=== PATIENT | female | born 1950 | race Caucasian/White ===

== ENCOUNTER 2017-02-28 07:40 | Inpatient (IN) | payer MEDICARE, OTHER ==
--- NOTE | ~2017-02-28 | CN ---
Consultation Report [facility] [address] [place]. [address] NAME: DURGA SEYMOUR : 48 STATUS : ADM IN PAT#: [id number] AGE: 67 ADM/REG DATE : 02/28/17 MR#: [id number] REPORT SERV DATE: 02/28/17 DICTATED BY: KARIN STOKES DATE: 02/28/17 REPORT STATUS : Draft TRANSCRIBED BY: MODL DATE: 02/28/17 PULMONARY AND CRITICAL CARE MEDICINE CONSULTATION. DATE OF CONSULTATION: 02/28/2017 CHIEF PROGRAM OFFICER: Dr. Shah from the emergency department. HISTORY OF PRESENT ILLNESS: I was asked to evaluate Durga Seymour for potential ICU admission by Dr. Shah in the emergency department. Mrs. Seymour is a 67-year-old lady, who has previous debilitating CVA, who is bed and wheelchair-bound at her baseline. Her provides all of her care at home and uses a lift to get her in and out of the bed. He reports that she ate approximately five sandwiches for dinner last night and at some point overnight began vomiting and became short of breath. EMS was contacted and she was brought to our facility for evaluation. She was seen by the treatment team in the emergency department and started on BiPAP. She had mild lactic acidosis and no evidence of hypercapnia according to ER MD. She does have leukocytosis and mild metabolic acidosis. On evaluating Ms. Seymour, she is sluggishly responsive and has asymmetric pupils, left greater than right. She has coarse breath sounds of the right lower lobe on BiPAP and has hemiparesis. In discussing goals of care with Mr. Seymour, he made it very clear to me that she had no interest in advanced forms of life support, never wanted to be on the ventilator, particularly in light of her very debilitated state. We discussed options for directions of her care including admission to the intensive care unit versus moving to a private room on the floor for supportive care, and more conservative management. He elected for transfer to a private room as a full DNR for antibiotics, oxygen support, and liberal visiting hours. I discuss the case with Dr. Shah from the emergency department. Recommendations would include emergent brain imaging in light of her obtundation, vomiting, and asymmetric pupils, and stat brain CT has been ordered by me this morning. Of note, she did receive DuoNeb which includes ipratropium which may account for her asymmetric pupils, but I am prudent to exclude intercerebral pathology, as well would recommend holding on noninvasive positive pressure ventilation (BiPAP), as she was vomiting and aspirating, and has no evidence of hypercapnia, Vapotherm will be a good choice if she is unable tolerate conventional nasal cannula. Her family is not interested in intubation or mechanical ventilation. I did complete a DNR form to that effect. Would recommend broad-spectrum antibiotics, ongoing fluid resuscitation, trending lactic acid level, following additional fluid boluses, and admission to the Hospital Medicine Service for supportive care. Please re-consult if needed Critical Care Medicine. We will sign off. [place]/ANNE MARIE Karin Stokes MD Consultation Report [address] [address] NAME: DURGA SEYMOUR : 48 STATUS : ADM IN [facility]#: [id number] AGE: 67 ADM/REG DATE : 02/28/17 MR#: [id number] REPORT SERV DATE: 02/28/17 DICTATED BY: KARIN STOKES DATE: 02/28/17 REPORT STATUS : Draft TRANSCRIBED BY: ANNE MARIE DATE: 02/28/17 / [id number] CC: Geovanni Vides M.D.
--- NOTE | ~2017-02-28 | HP ---
History And Physical [id number] [place]. 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 ED evaluation does show a large hemorrhagic CVA. The patient on chronic Coumadin. Her INR is 2.5. Family is more interested in palliative care based on the severity of her CT scan and not interested in transfer to [place]. The patient has been made DNR/DNI, will now be admitted to the Hospitalist Service for ongoing comfort care. 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 SOCIAL HISTORY: Lives with her . Very good family support. As mentioned above, she is currently DNR/DNI. Nonsmoker and nondrinker. FAMILY HISTORY: Positive for heart disease. REVIEW OF SYSTEMS: The patient has had no difficulty with her baseline diet. She has had no recent shortness of breath or chest pain. No recent reported melena, hematochezia, hemoptysis, or hematuria. Remainder of 10-point review of systems negative. PHYSICAL EXAMINATION: VITAL SIGNS: Temperature 97.7, heart rate 102, respiration 27, blood pressure 170/109. GENERAL: She is a well-developed, elderly female patient, who is unresponsive, but in no obvious distress. HEENT: Pupils equal, round, and reactive. Her pupils are unequal, they do respond to light. Oropharynx is clear. NECK: Without JVD or bruit. LUNGS: A few basilar rales, more prominent on the right than left. HEART: Regular. ABDOMEN: Soft, positive bowel sounds. No organomegaly or mass. EXTREMITIES: No edema. Pulses are +2. SKIN: Without rash or ecchymotic area. Joints without synovitis, effusion, or deformity. NEUROLOGIC: The patient with chronic left-sided weakness. Toes are upgoing bilaterally. GENITOURINARY: Significant for Sagastume catheter. RECTAL: Deferred. LABORATORY DATA: Available data; sodium 136, potassium 6.1, chloride 108, bicarb 19, BUN 14, creatinine 1.02, glucose 402, white count is 20, hemoglobin 15.2, hematocrit 44, platelets 277, INR is 2.5. Chest x-ray shows right basilar infiltrate versus atelectasis. CT of the brain shows massive intracranial hemorrhage. History And Physical [address] [address] NAME: DURGA SEYMOUR : 48 STATUS : ADM IN [facility]#: [id number] AGE: 67 ADM/REG DATE : 02/28/17 MR#: [id number] REPORT SERV DATE: 02/28/17 DICTATED BY: Isamar ALCOCER DATE: 02/28/17 REPORT STATUS : Draft TRANSCRIBED BY: ANNE MARIE DATE: 02/28/17 IMPRESSION: 67-year-old female patient with prior right MCA stroke and chronic Coumadin therapy secondary to venous thromboembolism, now presents with devastatingly large intracranial hemorrhage. PLAN: Admit to non-monitored bed. Attending Dr. Ben Alcocer. Consult to palliative care. DNR/DNI completed. Strict n.p.o. Routine vitals. O2 to keep sats greater than 90%. Hep- Lock IV. Comfort care medicines to include Zofran for nausea, morphine, and Ativan. We will also add scopolamine patch to change every 72 hours. Hold all home medications. Further recommendations for treatment pending input from palliative care and observation of her clinical course. I have reviewed the CT scan findings with all family members and discuss treatment options. They are all in agreement with comfort care only. BRAD/ANNE MARIE Isamar Alcocer M.D. / [id number] CC: Geovanni Vides M.D.
--- NOTE | ~2017-02-28 | DS ---
Discharge Summary [facility] [place] [address] [place]. [address] NAME: DURGA SEYMOUR : 48 STATUS : ADM IN [facility]#: [id number] AGE: 67 ADM/REG DATE : 02/28/17 MR#: [id number] REPORT SERV DATE: 02/28/17 DICTATED BY: Isamar ALCOCER DATE: 02/28/17 REPORT STATUS : Draft TRANSCRIBED BY: MODL DATE: 02/28/17 ADMISSION DATE: 02/28/2017 DISCHARGE DATE: 02/28/2017 DIAGNOSES AT THE TIME OF DISCHARGE: Large intracranial hemorrhage, prior old right middle cerebral artery stroke, hypertension, type 2 diabetes, depression, and chronic obstructive pulmonary disease. CONSULTS: None. PROCEDURES: None. BRIEF SUMMARY: This 67-year-old female patient who was found this morning unresponsive by her family, brought in by EMS, and found to have a large intracranial hemorrhage. The patient was admitted to [facility] for comfort care. Based on the terminal nature of her brain injury, the patient succumbed to her underlying medical problems and was pronounced at 1330 hours by two RNs on duty on . The certificate was completed by myself. The family has been made aware of the patient's demise. There was no autopsy or organ donation requested. Dr. Vides, her primary care provider, has been notified. DICTATED BY: Isamar Alcocer M.D. [facility]/ANNE MARIE Isamar Alcocer M.D. / [id number] CC: Delbert Thomas M.D.
[2017-02-28 07:11] LABS: BASOPHILS 0.4 %; BASOPHILS ABSOLUTE 0.09 10/3/uL (0.0-0.16); EOSINOPHILS 1.5 %; EOSINOPHILS ABSOLUTE 0.31 10/3/uL (0.0-0.53); ER CBC TAT 0 Hrs 10 Mins; HEMOGLOBIN 15.2 g/dL (12.0-16.0); IMMATURE GRANULOCYTES 0.3 %; LYMPHOCYTES ABSOLUTE 7.62 10/3/uL (0.67-4.30); MEAN CORPUS HGB CONC 34.5 g/dL (32.0-36.0); MEAN CORPUSCULAR HEMOGLOB 30.1 pg (26.0-34.0); MEAN CORPUSCULAR VOLUME 87.1 fL (80-100); MEAN PLATELET VOLUME 12.2 fL (9.2-13.0); MONOCYTES 5.4 %; MONOCYTES ABSOLUTE 1.09 10/3/uL (0.21-1.20); NEUTROPHILS 54.4 %; PLATELET COUNT 277 10/3/uL (150-400); RBC DISTRIBUTION WIDTH 13.4 % (12.0-16.0); RED CELL COUNT 5.05 10/6/uL (4.0-5.6); WHITE BLOOD CELLS 20.1 10/3/uL (4.5-10.5)
[2017-02-28 07:12] LABS: IMMATURE GRANULOCYTES ABSOLUTE 0.06 10/3/uL (0.0-0.11); MANUAL DIFF NO %
[2017-02-28 07:14] LABS: INTERNATIONAL NORMAL RATI 2.5 UNITS (-); PARTIAL THROMBO TIME 30.4 SEC (22.5-37.2); PROTIME (NOT ORD) 27.1 SEC (12.0-14.5)
[2017-02-28 07:15] LABS: ASCORBIC ACID (UR NOT ORDER) NEG (NEG); BILIRUBIN, URINE NEGATIVE (NEG); KETONE, URINE NEGATIVE (NEG); LEUKOCYTE ESTERASE(NOT OR NEG (NEG); NITRITE (URINE) NEG (NEG); WBC (NOT ORDERED) (RFLEX) 2 (0-5)
[2017-02-28 07:27] LABS: A/G RATIO 0.9 (0.7-1.9); ALBUMIN 3.4 G/DL (3.5-5.0); BAND NEUTROPHILS 3 %; BUN (BLOOD UREA NITROGEN) 14 MG/DL (6-23); CALCIUM, SERUM 8.9 MG/DL (8.5-10.4); CHLORIDE, SERUM 108 MMOL/L (96-112); CREATININE 1.02 MG/DL (0.55-1.02); ER DIFF TAT 0 Hrs 26 Mins; GFR AFRICAN AMERICAN 65 ML/MIN (>=60); GFR NON AFRICAN AMERICAN 56 ML/MIN (>=60); GLOBULIN 3.7 G/DL (2.5-4.1); LYMPHOCYTES 28 %; LYMPHOCYTES ABSOLUTE (CALC) 5.63 10/3/uL (0.67-4.30); MONOCYTES 3 %; NEUTROPHILS ABSOLUTE (CALC) 13.87 10/3/uL (2.02-8.40); PLATELET ESTIMATE ADQ (ADEQUATE); RBC MORPHOLOGY NORM (NORMAL); SEGMENTED NEUTROPHIL (0) 66 %; SGPT(ALT) 19 U/L (5-65); SODIUM, SERUM 136 MMOL/L (135-148); TOTAL BILIRUBIN 0.4 MG/DL (0-1.2); TOTAL NUCLEATED CELLS 100; TOTAL PROTEIN 7.1 G/DL (6.0-8.5)
[2017-02-28 07:30] LABS: ALKALINE PHOSPHATASE 167 U/L (45-117); CO2 (CARBON DIOXIDE) 19 MMOL/L (24-34); GLUCOSE, SERUM 402 MG/DL (60-99); POTASSIUM, SERUM 6.1 MMOL/L (3.5-5.3); SGOT(AST) 28 U/L (5-40)
[2017-02-28 07:39] LABS: BE (BASE EXCESS) -8.4 MEQ/L (0 +/- 2.5); HCO3 (ACTUAL BICARBONATE) 15.9 MEQ/L (23-27); INSTRUMENT SERIAL # 8087; OPERATOR ID 18801; PCO2 (CO2 TENSION) 30 MMHG (35-45); PO2 (O2 TENSION) 464 MMHG (79-93); SAMPLE Arterial; pH 7.34 (7.37-7.43)
[2017-02-28 09:11] LABS: AMPHETAMINES (NOT ORD) NEG (NEG); BARBITURATES (NOT ORDERED NEG (NEG); BENZODIAZEPINES (NOT ORD) NEG (NEG); CANNABINOIDS (THC) NEG (NEG); COCAINE (NOT ORDERED) NEG (NEG); OPIATES POS (NEG); PHENCYCLIDINE(PCP) NEG (NEG); TRICYCLICS NEG (NEG)
[2017-02-28] MEDS ORDERED: NORCO1 TAB PO (09:51)
[2017-02-28] MEDS ORDERED: FORTAMET500 MG PO (09:51)
[2017-02-28] MEDS ORDERED: MONO20 PO (09:51)
[2017-02-28] MEDS ORDERED: LIPITOR20 PO (09:52)
[2017-02-28] MEDS ORDERED: COREG12 PO (09:52)
[2017-02-28] MEDS ORDERED: C5 PO (09:52)
[2017-02-28] MEDS ORDERED: AMARYL2 PO (09:53)
[2017-02-28 10:35] LABS: ACETONE NEG
[2017-02-28 11:06] LABS: PROCALCITONIN 0.11 ng/mL (<0.5)
== END 2017-02-28 15:28 | disposition expired | DRG 64 ==
LOC: ER 07:40 → 1SO 11:31
PROVIDERS: Emergency Medicine
PROC: 5A09357 Assistance with Respiratory Ventilation, Less than 24 Consecutive Hours, Continuous Positive Airway Pressure (ICD-10-PCS; principal; 2017-02-28)
DX: I61.3 Nontraumatic intracerebral hemorrhage in brain stem (principal); J96.01 Acute respiratory failure with hypoxia; I47.2 Ventricular tachycardia; E87.2 Acidosis; I11.0 Hypertensive heart disease with heart failure; I50.9 Heart failure, unspecified; I16.0 Hypertensive urgency; I48.91 Unspecified atrial fibrillation; Z51.5 Encounter for palliative care; Z66 Do not resuscitate; E11.65 Type 2 diabetes mellitus with hyperglycemia; J44.9 Chronic obstructive pulmonary disease, unspecified; F32.9 Major depressive disorder, single episode, unspecified; Z79.01 Long term (current) use of anticoagulants; Z79.891 Long term (current) use of opiate analgesic; Z79.84 Long term (current) use of oral hypoglycemic drugs; Z86.718 Personal history of other venous thrombosis and embolism; Z79.899 Other long term (current) drug therapy; Z99.3 Dependence on wheelchair; Z86.73 Personal history of transient ischemic attack (TIA), and cerebral infarction without residual deficits
CPT/HCPCS: 36600; 70450; 71010; 80053; 80305; 81001; 82009; 82805; 82962; 83605; 84145; 85025; 85610; 85730; 87040; 87150; 93005; 94640; 94660; 96374; 96375; 99291; A9270-GY; J1956; J2405